=== PATIENT | female | born 1965 | race Caucasian/White ===

== ENCOUNTER 2020-02-24 10:29 | Day surgery (SDC) | payer OTHER ==
[2020-02-19 14:07] VITALS: BMI 25.9
[2020-02-24] MEDS ORDERED: PROPOFOL 20 ML ONE ×2 (11:21)
[2020-02-24 13:22] VITALS: BP 116/73; PULSE 74; TEMP 97.9
--- NOTE | 2020-02-25 17:46 | PATH ---
Surgical Pathology Report Patient Name: JEANA WOODWARD [facility]. Rec. #: [id number] /Age/Gender: 1965 (Age: 55) / F Account: [id number] Location: [facility] Taken: 02/24/2020 Received: 02/24/2020 Reported: 02/25/2020 Physicians: David Edwards M.D. Specimen(s) Received A: POLYP SIGMOID COLON B: POLYP RECTUM Clinical History History: Screening Postoperative diagnosis: Colon polyps, hemorrhoids Final Diagnosis A. SIGMOID COLON, POLYP, BIOPSY: HYPERPLASTIC POLYP(S). B. RECTUM, POLYP, BIOPSY: HYPERPLASTIC POLYP. Electronically Signed Virginia Johnson M.D. Gross Description A. Received in formalin, labeled "polyp sigmoid colon" are 2 falcon, irregular portions of soft tissue measuring 0.2 and 0.3 cm. in greatest dimension. The specimens are submitted in toto in one cassette. B. Received in formalin, labeled "polyp rectum" is a falcon, irregular portion of soft tissue measuring 0.3 cm. in greatest dimension. The specimen is submitted in toto in one cassette. MLSZ/02/24/2020 sanml/02/24/2020
== END 2020-02-24 13:15 | disposition home or self-care (01) ==
LOC: FASU-ENDO 10:29
PROVIDERS: ATTEND Internal Medicine Gastroenterology
PROC: 0DBL8ZX Excision of Transverse Colon, Via Natural or Artificial Opening Endoscopic, Diagnostic (ICD-10-PCS; 2020-02-24)
PROC: 0DBP8ZX Excision of Rectum, Via Natural or Artificial Opening Endoscopic, Diagnostic (ICD-10-PCS; principal; 2020-02-24 11:55)
DX: Z12.11 Encounter for screening for malignant neoplasm of colon (principal); D12.5 Benign neoplasm of sigmoid colon; K62.1 Rectal polyp; K64.8 Other hemorrhoids
CPT/HCPCS: 88305-TC